=== PATIENT | female | born 1995 | race Caucasian/White ===

== ENCOUNTER 2024-04-16 12:48 | Emergency (ER) | payer OTHER ==
[2024-04-16 12:59] VITALS: RESP 22; TEMP 98.2; BMI 27.4
[2024-04-16] MEDS ORDERED: predniSONE 20 MG TABLET (UD) ONE (13:57)
[2024-04-16] MEDS: predniSONE 20 MG TABLET (UD) PO ONE (14:00)
[2024-04-16 14:09] VITALS: BP 194/92; PULSE 99
== END 2024-04-16 14:41 | disposition home or self-care (01) ==
LOC: JER 12:48
DX: G51.0 Bell's palsy (principal)
CPT/HCPCS: 93005; 93010; 99283-25